=== PATIENT | female | born 1985 | race Two or more races ===

== ENCOUNTER → 2018-06-25 | Emergency (ER) | payer OTHER | END | disposition left against medical advice (07) | LOC: ER 21:56 | DX: T14.8XXA Other injury of unspecified body region, initial encounter (principal); Z53.21 Procedure and treatment not carried out due to patient leaving prior to being seen by health care provider; W64.XXXA Exposure to other animate mechanical forces, initial encounter; Y93.89 Activity, other specified; Y99.8 Other external cause status; Y92.89 Other specified places as the place of occurrence of the external cause ==